=== PATIENT | male | born 1965 | race Caucasian/White ===

== ENCOUNTER 2022-08-23 23:04 | Emergency (ER) | payer MEDICAID, SELFPAY ==
[2022-08-23 23:19] VITALS: BP 178/108; PULSE 93; RESP 18; TEMP 36.6; O2SAT 98; BMI 26.6
[2022-08-24 00:03] VITALS: BP 174/101; PULSE 88; RESP 18; O2SAT 98
--- NOTE | 2022-08-24 00:21 | ED_ITS ---
HPI - Head Injury General Chief complaint: Head Injury/Pain Stated complaint: got hit by a softball Time Seen by Provider: 08/24/22 00:12 History of Present Illness HPI Narrative: hit in head with a softball approx 2030, did not lose consciousness but states for a few minutes after hit could not see out of R eye, vision returned and patient played in second softball game. denies pain. no vomiting. R side of forehead red abrasion present. 57-year-old man presenting to the emergency department with spouse with concern of head injury. Was playing outfield softball about 3 hours prior to evaluation when he lost a fly ball in the [place] and it struck his right forehead. For a few minutes he was not able to see out of his right eye but vision then returned normally and he even played without difficulty the next game even pitched. There was no loss of consciousness. No trauma actually to the eye directly. He has no neck or back pain. No nausea vomiting. Mentally clear reportedly. No discoordination. Related Data Home Medications Medication Instructions Recorded Confirmed No Known Home Medications 04/30/22 Allergies Allergy/AdvReac Type Severity Reaction Status Date / Time No Known Drug Allergies Allergy Verified 04/30/22 14:48 Review of Systems Status of ROS: Reports: 6 or more systems reviewed and unremarkable except as noted in History and below PFSH [facility] Family History Father Stroke Brother Heart problem Other Diabetes Social History Smoking Status: Never smoker Do you use any of these nicotine containing products: None How often do you have a drink containing alcohol: 2-3 times a week AUDIT-C Alcohol total score: 3 Non-prescribed substance use: denies use Exam Narrative: Exam Narrative: Pleasant. NAD. Breathing easily. Neck is supple nontender. Back nontender. Moving all extremities without difficulty. Normal [id number]. Pupils are brisk and equal. Extraocular movements are full and nonpainful. There is no nystagmus. I do not see any hyphema or evidence of trauma to the eye itself. There is a maximal 2 cm abrasion oval consistent with ball impact at the right upper outer orbital rim/brow. Is not particularly tender to palpation in this area though it is swollen. I do not feel any crepitus or other irregularity. Negative Romberg's. Normal toe heel/tandem walk. Speaking fluidly. Const: Vital Signs, click to edit/add: Vital Signs - 24 hr 08/23/22 23:19 08/24/22 00:03 Temperature 98 F Pulse Rate [Pulse Oximeter] 93 88 Respiratory Rate 18 18 Blood Pressure [Ri ght Upper Arm] 178/108 H 174/101 H Pulse Oximetry 98 98 Oxygen Delivery Me thod Room Air Room Air Documenting provider has reviewed patient's vital signs: yes Course Vital Signs Vital signs: Initial Vital Signs Temperature 98 F 08/23/22 23:19 Temperature Source Temporal Artery Scan 08/23/22 23:19 Pulse Rate 93 08/23/22 23:19 Respiratory Rate 18 08/23/22 23:19 Blood Pressure 178/108 H 08/23/22 23:19 Blood Pressure Mean 131 H 08/23/22 23:19 Blood Pressure Position Sitting 08/23/22 23:19 Pulse Oximetry 98 08/23/22 23:19 Oxygen Delivery Method Room Air 08/23/22 23:19 Vital Signs Temperature 98 F 08/23/22 23:19 Pulse Rate 93 08/23/22 23:19 Respiratory Rate 18 08/23/22 23:19 Blood Pressure 178/108 H 08/23/22 23:19 Pulse Oximetry 98 08/23/22 23:19 Oxygen Delivery Method Room Air 08/23/22 23:19 Temperature 98 F 08/23/22 23:19 Pulse Rate 88 08/24/22 00:03 Respiratory Rate 18 08/24/22 00:03 Blood Pressure 174/101 H 08/24/22 00:03 Pulse Oximetry 98 08/24/22 00:03 Oxygen Delivery Method Room Air 08/24/22 00:03 MDM - Head Injury MDM Narrative Medical decision making narrative: I think this is primarily a contusion. Presumably there was not insignificant impact, this was not a line drive type impact, but I do not believe there is a skull fracture here. I am not seeing evidence of concussion either. I think this just was an event where was stunned. Further has no notable headache. I would follow-up for formal eye exam though I do not believe anything further needs to be done today. Discharge Plan Discharge Clinical Impression: Closed head injury Patient Disposition: Home w/ Parent or Adult Condition: Improved Additional Instructions: I would ice this area 2-3 times daily over the next few days. Signs and symptoms of a concussion can be headache and nausea on exertion which would also be an indication to back off that level of activity and reassess in 1 week.? Other signs might be a smoldering headache or nausea for an extended period of time, mood lability, sleep disturbances, difficulty with concentration, persistent light sensitivity. If these symptoms involving last for a week to 10 days I would be seen for repeat evaluation and further recommendations. Return for severe headache, repeated vomiting, new and focal weakness, repeat visual changes, discoordination, unusual somnolence. Prescriptions: No Action No Known Home Medications Follow Up/Referrals: John Varela MD [Staff Physician] - Stand Alone Forms: [employer] Info Instructions
== END 2022-08-24 00:34 | disposition home or self-care (01) ==
LOC: ED 08-24 00:25
PROVIDERS: Emergency Provider Family Medicine
DX: S00.11XA Contusion of right eyelid and periocular area, initial encounter (principal); W21.03XA Struck by baseball, initial encounter
CPT/HCPCS: 99283

== ENCOUNTER 2023-07-22 08:59 | Outpatient (CLI) | payer MEDICAID, SELFPAY | END 2023-07-22 09:00 | disposition home or self-care (01) | LOC: NFLDREF 07-23 06:53 | PROVIDERS: Visit Provider Physician Assistant Medical | DX: Z00.00 Encounter for general adult medical examination without abnormal findings (principal); I10 Essential (primary) hypertension; E78.5 Hyperlipidemia, unspecified; Z12.5 Encounter for screening for malignant neoplasm of prostate; Z01.818 Encounter for other preprocedural examination | CPT/HCPCS: 80053; 80061; 84443; G0103 ==

== ENCOUNTER 2023-08-02 13:29 | Outpatient (CLI) | payer MEDICAID, SELFPAY ==
--- OUTSIDE RECORDS SUMMARY | 2023-08-10 09:09 | XMS_ITS | Clinical Summary ---
Author Name Unknown Organization [facility] Address [place], [place] [address] Care Team Providers Care Fish Technologist Name Role Phone Pcp, No Primary Care Provider Unavailabl e Allergies No known active allergies Medications Medication Sig Dispensed Refills Start Date End Date Status cyclobenzaprine (FLEXERIL) 10 mg tabletIndications: Back pain,Rotator cuff (capsule) sprain and strain Take 1 tablet by mouth. At bedtime for muscle contracture 30 tablet 0 04/27/2011 Active acetaminophen (TYLENOL EXTRA STRGTH) 500 mg tabletIndications: Back pain,Rotator cuff (capsule) sprain and strain Take 2 tablets by mouth every 6 hours if needed. Max acetaminophen dose: 4000mg in 24 hrs. 90 tablet 0 04/27/2011 Active pantoprazole (PROTONIX) 40 mg tabletIndications: Hiatal hernia,GERD (gastroesophageal reflux disease) Take 1 tablet by mouth once daily. 30 tablet 5 06/09/2011 Active aspirin 81 mg tablet Take 1 tablet by mouth once daily with a meal. 0 01/05/2013 Active Active Problems Problem Noted Date Diagnosed Date Hiatal hernia 06/09/2011 Elevated blood pressure read ing without diagnosis of hypertension 05/22/2011 GERD (gastroesophageal reflux disease) 2 Overview: EGD 04/2011 normal esophagus, Reactive gastropathy Rotator cuff (capsule) sprain and strain 012 Back pain 04/27/2011 Resolved Problems Problem Noted Date Diagnosed Date Resolved Date Abdominal pain, epigastric 04/27/2011 0 06/09/2011 Allergic rhinitis, cause unspecified 03/26/2010 03/26/2010 Family History Medical History Relation Name Comments Stroke Father Good Health Mother Relation Name Status Comments Father Mother Social History Tobacco Use Types Packs/Day Years Used Date Smoking Tobacco: Never Smokeless Tobacco: Never Tobacco Cessation:Counseling Given: No Alcohol Use Standard Drinks/Week Comments Yes 0 (1 standard drink = 0.6 oz pur e alcohol) socially Sex and Gender Information Value Date Recorded Sex Assigned at Not on file Gender Identity Not on file Sexual Orientation Not on file Obstetrics History Last Filed Vital Signs Vital Sign Reading Time Taken Comments Blood Pressure 167/102 03/15/2021 4:31 PM CONTROL PANEL OPERATOR Pulse 101 03/15/2021 4:31 PM CONTROL PANEL OPERATOR Temperature 37.1 ??C (98.7 ??F) 03/15/2021 4:31 PM CS T Respiratory Rate 18 03/15/2021 4:31 PM CONTROL PANEL OPERATOR Oxygen Saturation 96% 03/15/2021 4:31 PM CONTROL PANEL OPERATOR Inhaled Oxygen Concentration - - Weight 83.9 kg (185 lb) 03/15/2021 4:31 PM CONTROL PANEL OPERATOR Height 175.3 cm (5' 9) 03/15/2021 4:31 PM CONTROL PANEL OPERATOR Body Mass Index 27.32 03/15/2021 4:31 PM CONTROL PANEL OPERATOR Plan of Treatment Health Maintenance Due Date Last Done Comments Tdap 01/24/1975 Depression screening for age 12+ 1976 HIV for age 15-65 01/24/1979 Hepatitis C screening for ag e 18-79 01/24/1982 Tetanus booster 1984 Colonoscopy through age 75 01/24/2009 Lipids for age 45-75 01/24/2009 Zoster (shingles) series for age 50+ (1 of 2) 01/24/2014 BMI (ht and wt on same day) for age 18+ 03/15/2022 03/15/2021 COVID-19 vaccine series ( season) 2022 10/12/2020, 09/21/2020 Influenza for age 50-64 12/26/2023 Pneumococcal series for age 6-64 Aged Out No longer eligible b ased on patient's age to complete this topic Care Teams Fish Technologist Relationship Specialty Start Date End Date Pcp, No . PCP - General 06/16/16
== END 2023-08-02 13:30 | disposition home or self-care (01) ==
LOC: NFLDREF 08-10 09:06
PROVIDERS: PCP Physician Assistant Medical; Visit Provider Physician Assistant Medical
DX: I10 Essential (primary) hypertension (principal)
CPT/HCPCS: 87086

== ENCOUNTER 2023-08-09 07:00 | Day surgery (SDC) | payer MEDICAID, SELFPAY ==
[2023-08-09] VITALS (12 sets, daily range): BP systolic 123–149; BP diastolic 75–91; PULSE 64–97; RESP 14–18; TEMP 36.2–36.4; O2SAT 93–97; BMI 26.7
[2023-08-09] MEDS: LACTATED RINGERS 1000 ML 1,000 ML 100 ML IV ×2 (07:15→09:59)
--- NOTE | 2023-08-09 08:20 | SUR.PREOP ---
TIME?OUT:?0900 PT/RN/MDA?VERIFICATION?OF?SURGICAL?SITE,?PROCEDURE,?AND?CONSENT OBTAINED?PRIOR?TO?INVASIVE?PROCEDURE.
[2023-08-09] MEDS: MIDAZOLAM HCL 1 MG/ML inj IVP (09:04)
[2023-08-09] MEDS: fentaNYL 100 MCG/2 ML inj IVP (09:04)
--- NOTE | 2023-08-09 09:30 | P.NB_ITS ---
Nerve Block Nerve Block Time Seen by Provider: 09:00 Date Seen: 08/09/23 Type of block requested by surgeon for post-operative analgesia: supraclavicular Side: right Time out performed: Yes Verification of patient name: Yes Verification of date of : Yes Site marking: site marked Name of person performing procedure: Lance Continuous monitoring Was continuous monitoring of O2 sat, B/P, permastone applicator, recorded every 15 minutes?: Yes Procedure Checklist: sterile prep, needles and gloves Ultrasound guided. Images saved: Yes Medications given in 5ml increments after negative aspiration: Ropivicaine %: 0.5 mL: 20 Needle gauge: 22 Decadron (mg): 10 Precedex (mcg): 25 Patient tolerated procedure well: Yes Block Charges Block Charge (with Pro Fee): Brachial Plexus Use of Ultrasound Machine for Block: Yes- US Guidance/pain block
[2023-08-09] MEDS: CEFAZOLIN 2 GM in 0.9 % SODIUM CHLORIDE Mini-bag 100 ML IVPB (09:55)
[2023-08-09] MEDS: EPINEPHrine 1 MG in SODIUM CHLORIDE IRRIG SOLUTION 3,000 ML 9003 MG IRRIGATION ×4 (10:15→11:15)
--- NOTE | 2023-08-09 11:22 | W.PM.H&PU ---
History & Physical Update History & Physical Update H&P Reviewed and patient assessed: No changes noted
[2023-08-09] MEDS: LACTATED RINGERS 1000 ML 1,000 ML 35 ML IV (11:23)
--- NOTE | 2023-08-09 11:23 | PM.ORPRC ---
Procedure Note Date of procedure: 08/09/23 Procedure: PREOPERATIVE DIAGNOSES: 1. Right shoulder rotator cuff tear. 2. Right shoulder AC degenerative joint disease, primary, moderate-severe 3. Right shoulder anterior and superior labral tearing 4. Right shoulder subacromial impingement syndrome. POSTOPERATIVE DIAGNOSES: 1. Right shoulder rotator cuff tear. 2. Right shoulder AC degenerative joint disease, primary, moderate-severe 3. Right shoulder anterior and superior labral tearing 4. Right shoulder subacromial impingement syndrome. NAME OF OPERATION: 1. Right shoulder arthroscopic rotator cuff repair - full-thickness supraspinatus 2. Right shoulder arthroscopic distal clavicle excision 3. Right shoulder arthroscopic limited glenohumeral debridement 4. Right shoulder arthroscopic bursectomy, subacromial decompression/partial acromioplasty. SURGEON: John Varela MD FISHING FLOATS ASSEMBLER: Guillermo BROWN. Of note, a skilled group fitness assistant department head was critical for this case to aide in patient positioning, suture manipulation, arm positioning, instrument positioning, and closure. ANESTHESIA: General plus preoperative supraclavicular block. EBL: 25 mL IMPLANTS: Arthrex 1.6 mm FiberTak RC (x1); Arthrex 5.5 mm BioComposite SwiveLock suture anchor (x1) COMPLICATIONS: None evident INDICATIONS: The patient is a pleasant, 58-year-old male who has experienced right shoulder pain that has been increasing in recent time. Physical exam and imaging were consistent with a rotator cuff tear. Given their findings, as well as the weakness and pain, and inadequate response to nonoperative management, recommendation was made for surgery. FINDINGS: Exam under anesthesia revealed stable shoulder with excellent range of motion. The diagnostic arthroscopy revealed healthy chondral surfaces of the glenohumeral joint. The Subscapularis tendon was intact and with a healthy attachment. The long head of the biceps tendon was minimally torn in a partial-thickness manner on the deep surface through the bicipital groove region. The superior rotator cuff tendon was found to be torn full thickness at the anterior margin measuring approximately 12 mm in greatest dimension with minimal retraction. The labrum was degeneratively frayed in the anterior and superior aspects. No loose bodies were identified within the pouch or subscapularis recess. PROCEDURE: Following a thorough discussion of risks, benefits, and alternatives, consent was obtained and the right shoulder was marked. The patient was brought to the operating room and placed supine on the operating table. Induction of anesthesia was completed after preoperative supraclavicular block was administered in preop holding. Appropriate time out was performed identifying proper patient, site, and procedure. 2 g IV Ancef was administered within 1 hour of incision preoperatively. The right upper extremity was prepped and draped in the appropriate sterile fashion using ChloraPrep prep. This was after the patient was positioned in the beach chair with their head in neutral alignment and all bony prominences well padded. The shoulder was insufflated with 20mL of normal saline via an 18g spinal needle from a posterior approach. An 11 blade skin incision allowed a blunt trochar to be inserted and diagnostic arthroscopy to be performed with the findings as noted above. An anterior portal was established with an outside in technique. This allowed the probe to be inserted and confirm the diagnostic arthroscopic findings. The shaver was then inserted and allowed debridement of the anterior and superior labrum. Following this, the upper border subscapularis was probed and found to be .stable Thereafter, the subacromial space was entered. Here, a complete bursectomy and partial acromioplasty/subacromial decompression was performed with a combination of radiofrequency ablator, the shaver, and a 5.5 mm bur. Additionally, distal clavicle excision was performed with the bur. 8 mm of distal clavicle was resected based on the with of our bur. Further inspection of the supraspinatus and infraspinatus rotator cuff was performed. This identified the tear as noted above. The margins of the tear were debrided, and the greater tuberosity was debrided with a combination of the apollo cautery, shaver, and bur on reverse setting. After gentle decortication, single medial and single lateral anchor were then applied. The medial was a FiberTak RC. The FiberTape sutures were passed independent fashion along with a single static eyelet suture. These 3 tails were brought to a single lateral anchor with excellent reapproximation of the rotator cuff opposed against the greater tuberosity. There was a small dog ear anteriorly that was secured with the eyelet suture from the lateral anchor. The rotator cuff showed excellent reapproximation of the greater tuberosity with good security upon probing. Prior to anchor skidder driver removal, the eyelet sutures were tugged on for each anchor and found that the anchor had excellent stability within the bone. The shoulder was placed through range of motion and found to be stable. The rotator cuff was re-probed and found to be stable. Instruments were removed. Excess fluid was drained, closure performed with 4-0 Monocryl and Steri-Strips. Dressings were applied. Sling was applied. The patient was awoken from anesthesia and transferred to the PACU in stable condition. A skilled group fitness assistant department head was critical for this case to aid in patient positioning, limb positioning, skill to manipulate arthroscopic instruments and camera, suture management, patient safety, and closure. PLAN: 1. Elbow, forearm, wrist and digit range of motion as tolerated. 2. Encouraged ice. 3. Oxycodone for pain as needed. 4. Sling at all times except for ROM and showering. 5. Follow up with PA visit in 1-2 weeks for wound check. Initiate physical therapy following that visit for passive range of motion. Initiate active assisted range of motion at 4 weeks. May do pendulums now.
--- NOTE | 2023-08-09 11:27 | W.ANESCHARGE ---
Anesthesia Charges Start Date/Time Anesthesia Start Date: 08/09/23 Anesthesia Start Time: 09:40 Stop Date/Time Anesthesia Stop Date: 08/09/23 Anesthesia Stop Time: 11:28
--- NOTE | 2023-08-09 11:48 | W.ANESCHARGE ---
Anesthesia Charges Start Date/Time Anesthesia Start Date: 08/09/23 Anesthesia Start Time: 09:40 Stop Date/Time Anesthesia Stop Date: 08/09/23 Anesthesia Stop Time: 11:28
== END 2023-08-09 13:39 | disposition home or self-care (01) ==
PROVIDERS: PCP Physician Assistant Medical; Visit Provider Orthopaedic Surgery Sports Medicine
PROC: (CPT 29805; principal; 2023-08-09 09:15)
DX: M75.121 Complete rotator cuff tear or rupture of right shoulder, not specified as traumatic (principal); M19.011 Primary osteoarthritis, right shoulder; M75.41 Impingement syndrome of right shoulder; S43.431A Superior glenoid labrum lesion of right shoulder, initial encounter; G89.18 Other acute postprocedural pain
CPT/HCPCS: 29827; 29826; 29824; 29822; 01630; 64415; 76942; C1713; J0171; J0330; J0690; J1100; J2250; J2405; J2704; J2795; J3010; J7120; L3670

== ENCOUNTER 2023-11-10 08:45 | Outpatient (RCR) | payer MEDICAID, SELFPAY ==
--- NOTE | 2023-08-23 12:54 | PT.OPE ---
[facility] PT [facility] Out[facility] Eval Start: 08/23/23 11:39 Freq: Status: Active Protocol: Document 08/23/23 11:40 LEANNE (Rec: 08/23/23 11:41 LEANNE [id number]) E-signed By Zafar Longoria DPT, MS Physical Therapy Outpatient Evaluation Insurance Information Recert Due Date 11/21/23 Insurance Name Medicaid Medical Diagnosis Status post R rotator cuff repair, SAD, DCE, and glenohumeral debridement Treating Diagnosis R shoulder pain, decreased R shoulder PROM and AROM in all directions, R UE weakness. Subjective Subjective Pt is an otherwise healthy R- hand dominant 58 y.o. male who presents to therapy post-op R RCR (supraspinatus) with 2 anchors, SAD, GH debridement and DCE on 08/09/23. Denies an injury with elevated R shoulder pain over the past >5 years. Well managed pain levels with R upper back/neck pain being his chief complaint . He has been careful to avoid AROM, continued sling usage and not performing activities into pain. Also using a splint for his R thumb due to tendon injuries. Sleep improving but wakes up with high levels of stiffness. Pendulums have been helpful. 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 Pt is currently unemployed. PMH includes R shoulder OA. AGGR factors: All activities with R UE, sleeping. ALLEV factors: rest, ice, Advil, pendulums. 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 R shoulder PROM: flex 105 deg, ABD 65 deg, ER 20 deg, IR 45 deg. Excellent relaxation during passive flex ROM today with no elevation in pain levels during or following. Will begin AAROM after 1 month post-op, per MD instructions. He will benefit from continued skilled therapy to address these limitations. Primary Functional Limitations All activities with R UE, sleeping Plan of Care Rehabilitation Potential Excellent Physical Therapy Goals Short-term therapy goals to be completed in 4 weeks: 1.Pt will display improved R shoulder flex and ABD PROM to >165 deg to progress to AROM phase of rehab. 2.Pt will report improved quality of sleep waking <2x per night due to R shoulder pain >50% of nights for >3 consecutive nights. Long-term goals to be completed in 12 weeks: 1.Pt will be independent and compliant with HEP 2.Pt will display >165 deg R shoulder flex and ABD AROM to reach into overhead cabinets and perform all ADLs. 3.Pt will display improved R shoulder flex, ABD, ER and IR strength of 5/5 to lift objects into overhead cabinets and perform work activities. 4. Pt will report >75% improvement in quick DASH questionnaire to significantly improve trista to work and daily activities. Coordination/Communication With Referral Source Treatment Plan/Direct Interventions Joint Mobilization,Manual Therapy,Therapeutic Exercises Frequency/Duration 2x per week for at least 12-16 visits, decreasing visit frequency as able. Patient Will Be Discharged From Therapy Completion of LTG(s),Skills Plateau,Independent w/HEP, Independently Progressing Evaluation Billing Untimed Code Treatment Minutes 24 Complexity Moderate Certification Information Initial Certification Date 08/23/23 Ending Certification Date 11/21/23 Provider Signature Shows Agreement With POC & Medical Necessity Physician Signature & Date Requested Please Sign/Date Here Physician Comment/Change : Physician NPI Number #
== END 2024-02-24 11:17 | disposition home or self-care (01) ==
PROVIDERS: PCP Physician Assistant Medical; Visit Provider Orthopaedic Surgery Sports Medicine
DX: Z98.890 Other specified postprocedural states (principal); M25.511 Pain in right shoulder; Z74.09 Other reduced mobility; R53.1 Weakness; Z51.89 Encounter for other specified aftercare
CPT/HCPCS: 97110; 97162

== ENCOUNTER 2023-11-26 08:55 | Outpatient (CLI) | payer MEDICAID, SELFPAY ==
--- OUTSIDE RECORDS SUMMARY | 2023-11-28 05:59 | XMS_ITS | Clinical Summary ---
Author Organization [facility] Address [place], [place] [address] Care Team Providers Care Flower Grower Name Role Phone Pcp, No Primary Care [...] Comments Blood Pressure 167/102 03/15/2021 4:31 PM FILM AND VIDEO GRAPHICS DESIGNER Pulse 101 03/15/2021 4:31 PM FILM AND VIDEO GRAPHICS DESIGNER Temperature 37.1 ??C (98.7 ??F) 03/15/2021 4:31 PM CS T Respiratory Rate 18 03/15/2021 4:31 PM FILM AND VIDEO GRAPHICS DESIGNER Oxygen Saturation 96% 03/15/2021 4:31 PM FILM AND VIDEO GRAPHICS DESIGNER Inhaled Oxygen Concentration - - Weight 83.9 kg (185 lb) 03/15/2021 4:31 PM FILM AND VIDEO GRAPHICS DESIGNER Height 175.3 cm (5' 9) 03/15/2021 4:31 PM FILM AND VIDEO GRAPHICS DESIGNER Body Mass Index 27.32 03/15/2021 4:31 PM FILM AND VIDEO GRAPHICS DESIGNER Plan of Treatment Health Maintenance Due Date [...] age to complete this topic Care Teams Flower Grower Relationship Specialty Start Date End Date Pcp, No . PCP - General 06/16/16
== END 2023-11-26 08:56 | disposition home or self-care (01) ==
PROVIDERS: PCP Physician Assistant Medical; Referring Provider Physician Assistant Medical; Visit Provider Physician Assistant Medical
DX: E78.5 Hyperlipidemia, unspecified (principal); R79.89 Other specified abnormal findings of blood chemistry; I10 Essential (primary) hypertension
CPT/HCPCS: 80061; 80076

== ENCOUNTER 2025-04-19 14:11 | Emergency (ER) | payer MEDICAID, SELFPAY ==
[2025-04-19 14:13] VITALS: BP 166/47; PULSE 90; RESP 18; TEMP 36.6; O2SAT 96; BMI 26.6
--- OUTSIDE RECORDS SUMMARY | 2025-04-19 14:14 | XMS_ITS | Clinical Summary ---
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 At bedtime for muscle contracture 30 tablet ctive acetaminophen (TYLENOL EXTRA STRGTH) 500 mg tablet Indications:Back pain,Rotator cuff (capsule) sprain and strainTake 2 tablets by mouth every 6 hours if needed. Max acetaminophen dose: 4000mg in 24 hrs. 90 tablet ctive pantoprazole (PROTONIX) 40 mg tablet Indications:Hiatal hernia,GERD (gastroesophageal reflux disease)Take 1 tablet by mouth once daily. 30 tablet ctive aspirin 81 mg tablet Take 1 tablet by mouth once daily with a meal.ctive Active Problems ProblemNoted DateDiagnosed DateHiatal huxbod4006/09/2011Elevated blood pressure reading without diagnosis of emhnacdlrrel12/27/2012GERD (gastroesophageal reflux disease)05/13/2011 Overview (05/28/2011): EGD 04/2011 normal esophagus, Reactive gastropathy Rotator cuff (capsule) sprain and xipeka7404/27/2011ack pain04/27/2011 Resolved Problems ProblemNoted DateDiagnosed DateResolved DateAbdominal pain, utumuuufgk22/02/2012 06/09/2011llergic rhinitis, cause qdxvnguglkd63 Family History Medical HistoryRelationNameCommentsStrokeFatherGood HealthMotherRelationName StatusCommentsFatherMother Social History Tobacco UseTypesPacks/DayYears UsedDateSmoking Tobacco: NeverSmokeless Tobacco: Never Tobacco Cessation:Counseling Given: No Alcohol UseStandard Drinks/WeekCommentsYes0 (1 standard drink = 0.6 oz pure alcohol)sociallySex and Gender InformationValueDate RecordedSex Assigned at BirthNot on fileLegal EupWmxi7505/09/2012 6:52 AM CSTGender IdentityNot on file Sexual OrientationNot on file Last Filed Vital Signs Vital SignReadingTime TakenCommentsBlood Fhbjkwgv715/3561203/15/2021 4:31 PM COMMUNITY SERVICE SPECIALIST Qcqky16835/20/2021 4:31 PM THPDlziyoprixq57.1 ??C (98.7 ??F)03/15/2021 4:31 PM CSTRespiratory Movr863905/15/2020 4:31 PM CSTOxygen Wikrdihvkk28%03/15/2021 4:31 PM CSTInhaled Oxygen Concentration--Rjgipw86.9 kg (185 lb)03/15/2021 4:31 PM COMMUNITY SERVICE SPECIALIST Orsvpn867.3 cm (5' 9)03/15/2021 4:31 PM CSTBody Mass Index27.32105/15/2020 4:31 PM COMMUNITY SERVICE SPECIALIST Plan of Treatment Health MaintenanceDue DateLast DoneCommentsTetanus alnkbln6501/24/1975Depression screening for age 12+1976HIV for age 15-6501/24/1979Hepatitis C screening for age 18-7901/24/1982Colonoscopy through age 7501/24/2009Lipids for age 45-75 01/24/2009Pneumococcal series for age 50+ (1 of 1 - PCV)01/24/2014Zoster (shingles) series for age 50+ (1 of 2)01/24/2014MI (ht and wt on same day) for age 18+/OVID-19 vaccine series (2024- season) , 05/29/2021Influenza Vaccine (#1)2024RSV vaccine for adults or (1 - 1-dose 75+ series)01/24/2039Hepatitis B series for 19+ Aged OutNo longer eligible based on patient's age to complete this topic Insurance * Guarantor: David Fisher TypeRelation to PatientDate of PhoneBilling AddressPersonal/LekhchJmxf[id number] [place] [address] * Guarantor: David Fisher TypeRelation to PatientDate of PhoneBilling AddressWorkers [id number] [place] [address] [place] [address] * Guarantor: David Fisher TypeRelation to PatientDate of PhoneBilling AddressWorkers [id number] [place] [address] * Guarantor: David Fishercopamela TypeRelation to PatientDate of PhoneBilling AddressWorkers [id number] [place] [place] [id number] Care Teams Team MemberRelationshipSpecialtyStart DateEnd Date Pcp, No PCP - General06/16/16
--- OUTSIDE RECORDS SUMMARY | 2025-04-19 14:14 | XMS_ITS | Data Portability ---
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 Plan of Treatment Reminders Order DateSubmit DateProviderLast Modified ByOrganization DetailsLast Modified TimeDetailsAppointmentsNone recorded.Laburinalysis, zwsdivwd33/ ltuzwd31[facility], [address] [place] [address] [address], [place], [address], 09/ 11:42:26ReferralNone recorded.ProceduresNone recorded. SurgeriesNone recorded.ImagingCT, dlbedwg17/[facility], [address] [place] [address] [address], [place], [address], Ph [phone]/ 13:11:19Medication Orderstadalafil 5 mg kqashj78sbartels12[facility] [address] [facility] [employer], [address] [place], [address], 11/22/2024 16:32:26diazepam 10 mg axynpv90THENACVS [address] [facility], [address] , [place], [address], 12/23/2023 15:31:45 Patient TargetsNo targets recorded. Patient InstructionsNo instructions recorded. Reason for Referral None Reported. Results Created Date Observation Date Name Description Value Unit Range Abnormal Flag Note LastModifiedBy Organization Detail LastModifiedTime 11/11/2023 11/11/2023 urinalysis, dipstick BLOOD Negativ e Not Available[facility] [address], [place], [address], 50/ 11:38:44[address]/10//urinalysis, dipstickBILIRUBINNegativeNot Available [facility] [address], [place], [address], 63 11:38:44011/10//urinalysis, dipstickUROBILINOGEN0.2 mg/dL (Norm)Not AvailableUa_[facility] [address], [place], [address], 59 11:38:44011/10//urinalysis, dipstickKETONESNegativeNot Available [facility] [address], [place], [address], 71 11:38:44011/10//urinalysis, dipstickPROTEINNegativeNot Available [facility] [address], [place], [address], 84 11:38:4407//urinalysis, dipstickNITRITESNegativeNot Available [facility] [address], [place], [address], 83 11:38:44011/10//urinalysis, dipstickGLUCOSENegativeNot Available [facility] [address], [place], [address], 45 11:38:4407//urinalysis, dipstickp.H.6.0Not AvailableUa_[facility] [address], [place], [address], 72/ 11:38:4407///urinalysis, dipstickS.G. (Specific [place])1.020Not AvailableUa_[facility] [address], [place], [address], 61/ 11:38:4407///urinalysis, dipstickLEUKOCYTESNegativeNot Available [facility] [address], [place], [address], 87 11:38:4407//4CT, urogramEXAM: CT, UROGRAM LOCATION: [facility] DATE: 11/18/2023 INDICATION: Other microscopic hematuria COMPARISON: None. TECHNIQUE: CT scan of the abdomen and pelvis using urogram technique withpre contrast, post contrast, and delayed images. Multiplanar reformats were obtained. Dose reduction techniques were used. CONTRAST: None. FINDINGS: LOWER CHEST: 5 mm pulmonary nodule is present within the right lower lobe (series 8, image 23). HEPATOBILIARY: No significant mass or bile duct dilatation. No calcified gallstones. PANCREAS: No significant mass, duct dilatation, or inflammatory change. SPLEEN: Normal size. ADRENAL GLANDS: Mild thickening is seen along the adrenal glands suggestive of hyperplasia. RIGHT KIDNEY/URETER: 2 mm nonobstructive calculus is seen along the inferior pole. No hydronephrosis is present. LEFT KIDNEY/URETER: 3 mm nonobstructive calculus is seen along the inferior pole. No hydronephrosis is present. BLADDER: Diffuse wall thickening is seen within the urinarybladder. BOWEL: Diverticulosis of the colon. No acute inflammatory change. No obstruction. LYMPH NODES: No lymphadenopathy. Subcentimeter upper abdominal lymph nodes are nonspecific and may be reactive measuring up to 7 mm along the portocaval space (series 8, image 51). VASCULATURE: Scattered vascular calcifications are seen in the abdominal aorta. PELVIC ORGANS: Prostate gland is enlarged measuring 5.9 cm in transverse diameter. MUSCULOSKELETAL: Multilevel degenerative changes are seen in thespine. 4 mm sclerotic focus is seen along the right lateral eighth rib and a few other punctate sclerotic foci are seen in the pelvis, favored to reflect bone islands. IMPRESSION: 1. No hydronephrosis or obstructive nephrolithiasis. Nonobstructive calculi are seen along both kidneys measuring up to3 mm along the left kidney and 2 mm along the right kidney. 2. 5 mm pulmonary nodule is seen in theright lower lobe. Suggest follow-up per guidelines below. 3. Diffuse wall thickening is seen withinthe urinary bladder which likely relates to outlet obstruction given prostatomegaly. Suggest correlation with urinalysis for underlying cystitis. REFERENCE: Guidelines for Management of Incidental Pulmonary Nodules Detected on CT Images: From the Fleischner Society 2017. Guidelines apply to incidental nodules in patients who are 35 years or older. Guidelines do not apply to lung cancer screening,patients with immunosuppression, or patients with known primary cancer. SINGLE NODULE Nodule size <6 mm Low-risk patients: No follow-up needed. High-risk patients: Optional follow-up at 12 months.Nodule size 6-8 mm Low-risk patients: Follow-up CT at 6-12 months, then consider CT at 18-24 months. High-risk patients: Follow-up CT at 6-12 months, then at 18-24 months if no change. Nodule size >8 mm Either low or high-risk patients: Consider CT, PET/CT, or tissue sampling at 3 months. This report was electronically interpreted by: Yajaira Benitez MD on 11/18/2023 at 12:03acgzxy6 [facility] [place] [address] [address], [place], [address], 12/23/2023 22:12:31 Result Notes Documentation Provider Name and Address Organization Details Recorded Time Ct, Urogram : EXAM: CT, UROGRAM LOCATION: [facility] DATE: 11/18/2023 INDICATION: Other microscopic hematuria COMPARISON: None. TECHNIQUE: CT scan of the abdomen and pelvis using urogram technique with pre contrast, post contrast, and delayed images. Multiplanar reformats were obtained. Dose reduction techniques were used. CONTRAST: None. FINDINGS: LOWER CHEST: 5 mm pulmonary nodule is present within the right lower lobe (series 8, image 23). HEPATOBILIARY: No significant mass or bile duct dilatation. No calcified gallstones. PANCREAS: No significant mass, duct dilatation, or inflammatory change. SPLEEN: Normal size. ADRENAL GLANDS: Mild thickening is seen along the adrenal glands suggestive of hyperplasia. RIGHT KIDNEY/URETER: 2 mm nonobstructive calculus is seen along the inferior pole. No hydronephrosis is present. LEFT KIDNEY/URETER: 3 mm nonobstructive calculus is seen along the inferior pole. No hydronephrosis is present. BLADDER: Diffuse wall thickening is seen within the urinary bladder. BOWEL: Diverticulosis of the colon. No acute inflammatory change. No obstruction. LYMPH NODES: No lymphadenopathy. Subcentimeter upper abdominal lymph nodes are nonspecific and may be reactive measuring up to 7 mm along the portocaval space (series 8, image 51). VASCULATURE: Scattered vascular calcifications are seen in the abdominal aorta. PELVIC ORGANS: Prostate gland is enlarged measuring 5.9 cm in transverse diameter. MUSCULOSKELETAL: Multilevel degenerative changes are seen in the spine. 4 mm sclerotic focus is seen along the right lateral eighth rib and a few other punctate sclerotic foci are seen in the pelvis, favored to reflect bone islands. IMPRESSION: 1. No hydronephrosis or obstructive nephrolithiasis. Nonobstructive calculi are seen along both kidneys measuring up to 3 mm along the left kidney and 2 mm along the right kidney. 2. 5 mm pulmonary nodule is seen in the right lower lobe. Suggest follow-up per guidelines below. 3. Diffuse wall thickening is seen within the urinary bladder which likely relates to outlet obstruction given prostatomegaly. Suggest correlation with urinalysis for underlying cystitis. REFERENCE: Guidelines for Management of Incidental Pulmonary Nodules Detected on CT Images: From the Fleischner Society 2017. Guidelines apply to incidental nodules in patients who are 35 years or older. Guidelines do not apply to lung cancer screening, patients with immunosuppression, or patients with known primary cancer. SINGLE NODULE Nodule size <6 mm Low-risk patients: No follow-up needed. High-risk patients: Optional follow-up at 12 months. Nodule size 6-8 mm Low-risk patients: Follow-up CT at 6-12 months, then consider CT at 18-24 months. High-risk patients: Follow-up CT at 6-12 months, then at 18-24 months if no change. Nodule size >8 mm Either low or high-risk patients: Consider CT, PET/CT, or tissue sampling at 3 months. This report was electronically interpreted by: Yajaira Benitez MD on 11/18/2023 at 12:09 Thony Crystal MD [address] [place] [address],[address], [address], [facility] 12/23/2023 22:12:31 Procedures Surgical History Date Name Laterality Status Provider Name and Address Organization Details Recorded Time 12/23/2023 Cystoscopy- male completedThony Crystal MD [address] [place] [address],[address], [place], [address], [facility]12/23/2023 22:14:2604COMPLEX VISITcompletedThony Crystal MD [address] [place] [address],[address], [address], [facility]12/23/2023 22:14:3104complete repair of rotator cuffcompletedRebecca [facility]11/11/2023 11:48:07 Imaging Results None recorded. Procedure Notes None recorded. Medical Equipment None Reported. Allergies No known drug allergies Medications Name Sig Start Date Stop Date Status Note LastModified by Organization Details LastModified Time diazepam 10 mg tablet TAKE 1 TABLET BY O RAL ROUTE DIRECTED, FOR IN OFFICE PROCEDURE. 12/23/2023ompletedNot AvailableNot AvailableNot Availableoxycodone 5 mg tablet TAKE 1 TABLET BY MOUTH EVERY 4-8 HOURS NEEDED FOR PAIN11/11/2023ompletedNot AvailableNot AvailableNot Availablecalcium 100 mg capsuleTake by oral route. activeNot AvailableNot AvailableNot Availablerosuvastatin 10 mg tabletTAKE 1 TABLET BY MOUTH ONCE DAILY FOR FOR CHOLESTEROLactiveNot AvailableNot Available Not Availabletadalafil 5 mg tabletTAKE 1 TABLET BY MOUTH EVERY DAYactiveNot AvailableNot AvailableNot Availableamlodipine 5 mg-valsartan 160 mg tabletTAKE 1 TABLET BY MOUTH EVERY DAY FOR BLOOD PRESSUREactiveNot AvailableNot AvailableNot Available Vitals Date Recorded Body height Body mass index (BMI) Body weight Provider Name and Address Organization Details Last Updated DateTime 11/11/2023 175.26 cm 26.6 kg/m2 10018.63 g Cinda Molina [facility] 11/11/2023 11:45:03 Date Recorded Body height Body mass index (BMI) Body weight Provider Name and Address Organization Details Last Updated DateTime 12/23/2023 175.26 cm 26.6 kg/m2 74507.63 g Cinda Rocha [facility] 12/23/2023 15:31:31 Social History Question Answer Notes LastModified by Organization D etails LastModified Time Tobacco Smoking Status Never Smoker Cinda Molina manjinder [facility]11/11/2023 11:47:35What Is Your Level Of Caffeine Consumption?ModeraterstromquistInformation not /18/2024What Was The Date Of Your Most Recent Tobacco Screening?8910echfgntl00Joryjjyghfq not ururyjmbq38/29/2024Has Tobacco Cessation Counseling Been Provided?Kdhbjxyhgz36 Information not ipohnyemr10/29/2024 Sex: Unknown Functional Status Question Answer Note LastModified by Organization D etails LastModified Time Do you use any illicit or recreational drugs? No rstromquistInformation not /18/2024o you or have you ever used any other forms of tobacco or nicotine?Atlgifdiji88Ltvcpxuhtfc not available 12/23/2023What is your level of alcohol consumption?Occasionalrstromquist Information not ftdmabowh13/18/2024 Mental Status None recorded. Family History Relationship Description Onset Age of this Age Resolved Age Notes LastModified by Organization Details LastModified Time Father Hernia repair rstromquistNot gyoivdvvl52/18/2024 11:47:13BrotherHernia repairrstromquistNot dpjtieyuc31/18/2024 11:47:13 Medical History No medical history recorded. Immunizations Vaccine Type Date Status Note Provider Nam e and Address Organization Details Recorded Time COVID-19, mRNA, LNP-S, PF, 30 mcg/0.3 mL dose 09/22/19 21 completed Cinda dunbar [facility]11/11/2023 11:45:10COVID-19, mRNA, LNP-S, PF, 30 mcg/0.3 mL dose1completedRebLUNA Narayanan [facility] [place] Llmxvqx1411/11/2023 11:45:49Tusd57completedReLUNA Pelayo - [place] Xmcspsf5011/11/2023 11:45:10 Past Encounters Encounter ID Performer Location Encounter Start Date Encounter Closed Date Diagnosis/Indication Diagnosis SNOMED-CT Code Diagnosis ICD10 Code Diagnosis IMO Codes Diagnosis Note [id number] Thony Crystal MD [facility] [address] [place] [address] 11/11/2023 11:09:45 11/13/2023 16:12:52 Microscopic hematuria 590537801 R31.29 - We reviewed the differential diagnosis for microscopic hematuria including benign and malignant etiologies.- We discussed the standard of care work up including evaluation of the upper urinary tract and lower urinary tract with cystoscopy and cross-sectional imaging to evaluate the kidneys and ureters.- Patietn requests cystoscopy with aid of diazepam- CT Urogram orderedAnxiety 24508133X13.9 - Diazepam for cystoscopySlowing of urinary tnervw00703481J09.12 - Obtain UroCuff in 6 months - AUA SS: 15 (QOL 4) - We discussed the natural history of voiding dysfunction including primary bladder outlet obstruction vs detrusor instability vs combination. We discussed the role of medications in the management of BPH including alpha blockers, 5- ROLO, and anticholinergics/beta agonists including their mechanismsof action. - Trial daily tadalafilUrgent desire to pfokmbj53611621D85.15 - as aboveUrine stream ztfgxhdytgs514053775E47.12 - as aboveSensation as if urinary bladder still mjue517815903M00.14 - as xstvsWmfokeka339780160W13.1 - as abovePrimary erectile zethwddrayp587621335G91.9 - IIEF: 17- Trial rrvlnxnju434798Gtsoot [place], [facility] [address] [place] [address] 12/23/2023 15:21:53012/30/2023 10:48:54Microscopic ttmnvshds443028703K10.29 - We reviewed the differential diagnosis for microscopic hematuria including benign and malignant etiologies.- We discussed the standard of care work up including evaluation of the upper urinary tract and lower urinary tract with cystoscopy and cross-sectional imaging to evaluate the kidneys and ureters.- Cystoscopy benign- CT Urogram reviewedSlowing of urinary xyhhue30672946B53.12 - Obtain UroCuff in 6 months - AUA SS: 15 (QOL 4) --> 4 (3) - We discussed the natural history of voiding dysfunction including primary bladder outlet obstruction vs detrusor instability vs combination. We discussed the role of medications in the management of BPH including alpha blockers, 5- ROLO, and anticholinergics/beta agonists including their mechanismsof action. - Trial daily tadalafil has been very successfulUrgent desire to rrlcxxq25286782 R39.15 - as aboveUrine stream sdvlhjqvvcw627504696J38.12 - as aboveSensation as if urinary bladder still uspb259986902A59.14 - as sodusMeyxmpje556237635R05.1 - as abovePrimary erectile klrabkdotbk130397134M16.9 - IIEF: 17- Trial tadalafilKidney chogq72409545S44.0 - Small and non-obstructing, recommend monitoring Health Concerns Section Related Observation LastModified by Organization Detai ls LastModified Time None Recorded Concern Status LastModified by Organization Details LastModified Time None Recorded Advance Directives Directive None Recorded Payers Insurance Date Sequence Insurance Name Policy Number Policy Ribeiro Covered Member ID Ribeiro Member ID Guarantor Name 11/11/2023 1 [employer] [place] (MEDICAID HMO) David [id number] D [id number]/06/20241[place] David [id number] D Christensen Notes Date Note Type Note Provider Name and Address Orga richard Details Recorded Time 11/11/2023 text/html This is a 58 year old male who is referred by his primary care provider, Linda Constantino PA-C, for the evaluation and management of microscopic hematuria. Patient reports worsening urinary habits including: weak stream, urinary urgency, urinary frequency, intermittency, and nocturia. The patient has never been a smoker.They deny any worrisome occupational exposures that would increase their risk for urothelial cell carcinoma. Also reports moderate ED. He denies any history of urologic malignancies.No history of nephrolithiasis.No history of prior pelvic radiation.Thony Crystal MD [address], [place], [address], [facility] Nflhutr6411/11/2023 13:39:0812/23/2023text/html This is a 58 year old male who is referred by his primary care provider, Linda Constantino PA-C, for the evaluation and management of microscopic hematuria. Patient reports worsening urinary habits including: weak stream, urinary urgency, urinary frequency, intermittency, and nocturia. The patient has never been a smoker.They deny any worrisome occupational exposures that would increase their risk for urothelial cell carcinoma. Also reports moderate ED. He denies any history of urologic malignancies.No history of nephrolithiasis.No history of prior pelvic radiation. 12/23/2023:Here for follow up microscopic hematuria, BPH with LUTS, ED, and new diagnosis of small bilateral non-obstructing kidney stones. CT Urogram reviewed with no other adverse findings. Due for cystoscopy today with diazepam on board. Significant improvement in urination with tamsulosin.Thony Crystal MD [address], [place], [address], [facility] Hfilyyr5812/23/2023 22:16:51
--- NOTE | 2025-04-19 14:24 | CRLHL7_ITS ---
For Patients: As a result of the Century Cures Act, medical imaging exams and procedure reports are released immediately into your electronic medical record. You may view this report before your referring provider. If you have questions, please contact your health care provider. INDICATION: Fall. Hit anterior neck. TECHNIQUE: CT of the head without contrast. Coronal and sagittal reformats are included. COMPARISON: CT of the head from 10/02/2012. FINDINGS: No acute intracranial hemorrhage. No mass effect or midline shift. No hydrocephalus or extra-axial collections. White matter is within normal limits for age. No acute osseous abnormalities. Mastoid air cells and paranasal sinuses are clear. Normal soft tissues. IMPRESSION: IMPRESSION: 1. No acute intracranial abnormalities. Please note that all CT scans at this facility use dose modulation, iterative reconstruction, and/or weight-based dosing when appropriate to reduce radiation dose to as low as reasonably achievable. Dictated by Chris Barlow MD @ 04/19/2025 2:55:38 PM (Electronically Signed)
--- NOTE | 2025-04-19 14:24 | CRLHL7_ITS ---
For Patients: As a result of the Cures Act, medical imaging exams and procedure reports are released immediately into your electronic medical record. You may view this report before your referring provider. If you have questions, please contact your health care provider. INDICATION: Fall, trauma. TECHNIQUE: CT cervical spine without contrast. COMPARISON: None. FINDINGS: No acute fracture. No listhesis. Bony mineralization is age appropriate. No prevertebral soft tissue hematoma or swelling. No soft tissue abnormality is identified. Multilevel spinal stenosis. No pathologically enlarged lymph nodes. Thyroid is normal. Lung apices are clear. IMPRESSION: No acute fracture. Please note that all CT scans at this facility use dose modulation, iterative reconstruction, and/or weight-based dosing when appropriate to reduce radiation dose to as low as reasonably achievable. Dictated by Tunde Deras MD @ 04/19/2025 2:57:48 PM (Electronically Signed)
--- NOTE | 2025-04-19 14:26 | ED.GENADULT ---
HPI - General Adult General Chief complaint: Laceration/Wound Stated complaint: LAC Time Seen by Provider: 04/19/25 14:21 History of Present Illness HPI narrative: Patient is a 60-year-old gentleman who was working on his trailer hitch today when he slipped on the ice falling forward. He struck his neck on the H itself is not believe he hit his head. Patient was helped up by his . Patient does not believe he has had change in his consciousness. He has some tingling down his left arm as well as 2 small puncture area is just to the left of the midline on the anterior neck. Patient has no neurologic complaints. No fevers no chills. Patient is in his usual state of health. Patient brought in to the ER C-collar is in place Related Data Previous Rx's ?Medication ?Instructions ?Recorded amlodipine 5 mg tablet 5 mg PO QDAY #90 tabs 03/29/24 valsartan 160 mg tablet 160 mg PO QDAY #90 tabs 03/29/24 rosuvastatin 10 mg tablet 10 mg PO DAILY for cholesterol #30 01/26/25 tabs amlodipine 5 mg-valsartan 160 mg 1 tab PO QDAY #14 tabs 03/19/25 tablet Allergies Allergy/AdvReac Type Severity Reaction Status Date / Time No Known Drug Allergies Allergy Verified 04/19/25 14:17 Review of Systems Status of ROS: Reports: 10 or more systems reviewed and unremarkable except as noted in History and below [facility] Medical History Pain of right thumb ?M79.644 - Pain in right finger(s) (ICD-10) Rotator cuff tear, right ?M75.101 - Unspecified rotator cuff tear or rupture of right shoulder, not specified as traumatic (ICD-10) Hypertension ?I10 - Essential (primary) hypertension (ICD-10) Subacromial impingement of right shoulder ?M75.41 - Impingement syndrome of right shoulder (ICD-10) Arthritis of right acromioclavicular joint ?M19.011 - Primary osteoarthritis, right shoulder (ICD-10) Benign prostatic hyperplasia ?N40.0 - Benign prostatic hyperplasia without lower urinary tract symptoms (ICD-10) Surgical History Hx of repair of right rotator cuff (~07/2023) ?Z98.890 - Other specified postprocedural states (ICD-10) History of surgery on arm ?Z98.890 - Other specified postprocedural states (ICD-10) History of tonsillectomy ?Z90.89 - Acquired absence of other organs (ICD-10) History of bilateral inguinal hernia repair (01/10/18) ?Z98.890 - Other specified postprocedural states (ICD-10) ?Z87.19 - Personal history of other diseases of the digestive system (ICD-10) Family History (Updated 07/21/23 @ 16:19 by Linda Morgan PA-C) Father Stroke High blood pressure Brother High blood pressure Hx of CABG Mother Diabetes High blood pressure Cardiac arrhythmia Sister High blood pressure Brother Heart problem Son Sleep apnea Social History Narrative: 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 Alcohol: 2-3 beers a couple times per month. Denies recreational drug use . 3 sons ( 22yo, 24yo, 26 yo) Smoking Status: Never smoker Do you use any of these nicotine containing products: None Second hand tobacco smoke exposure: No How often do you have a drink containing alcohol: never AUDIT-C Alcohol total score: 0 Non-prescribed substance use: denies use Exam Narrative: Exam Narrative: EXAM GENERAL: Patient appears comfortable and well. EYES: No scleral icterus. LYMPH: No supraclavicular or cervical lymphadenopathy. SKIN: Small skin tears verses lacerations anterior neck just to the left of the midline. Largest of which is 1 cm in length EXT: No dependent lower extremity pedal edema. HEART: Regular rate and rhythm with no murmurs, rubs, or gallops. LUNGS: Clear to auscultation bilaterally with no crackles or wheezes. ABD: Soft, non tender, non distended. PSYCH: Good eye contact, speech is not pressured. Neurologic cranial nerves 2-12 grossly intact no focal defects. Const: Vital Signs, click to edit/add: Vital Signs - 24 hr 04/19/25 14:13 Temperature 97.8 F Pulse Rate [Right] 90 Respiratory Rate 18 Blood Pressure [Le ft Upper Arm] 166/47 H Pulse Oximetry 96 Oxygen Delivery Me thod Room Air Course Course ED Course: Patient seen and examined. He is stable at this time we did send him for CT of the head and neck. Vital Signs Vital signs: Initial Vital Signs Temperature 97.8 F 04/19/25 14:13 Temperature Source Temporal Artery Scan 04/19/25 14:13 Pulse Rate 90 04/19/25 14:13 Pulse Rhythm Regular 04/19/25 14:13 Pulse Strength 3+ Normal 04/19/25 14:13 Respiratory Rate 18 04/19/25 14:13 Blood Pressure 166/47 H 04/19/25 14:13 Blood Pressure Mean 86 04/19/25 14:13 Pulse Oximetry 96 04/19/25 14:13 Oxygen Delivery Method Room Air 04/19/25 14:13 Vital Signs Temperature 97.8 F 04/19/25 14:13 Pulse Rate 90 04/19/25 14:13 Respiratory Rate 18 04/19/25 14:13 Blood Pressure 166/47 H 04/19/25 14:13 Pulse Oximetry 96 04/19/25 14:13 Oxygen Delivery Method Room Air 04/19/25 14:13 Temperature 97.8 F 04/19/25 14:13 Pulse Rate 90 04/19/25 14:13 Respiratory Rate 18 04/19/25 14:13 Blood Pressure 166/47 H 04/19/25 14:13 Pulse Oximetry 96 04/19/25 14:13 Oxygen Delivery Method Room Air 04/19/25 14:13 Medical Decision Making MDM Narrative Medical decision making narrative: Patient presents after a blunt injury to the anterior aspect of his neck. He has 2 very small skin tears which are dressed which are cleaned and dressed. I did image his head and cervical spine both for normal. Patient does have some tingling in his hands but has a normal neurologic repeat exam. I did call and discuss findings with Neurology who personally reviewed the imaging and clinical course. At this time patient is offered reassurance he can take care of the skin tears with daily dressing changes and follow-up with his primary physician as needed. Discharge Plan Discharge Clinical Impression: Injury of neck Patient Disposition: Home, Self-Care Condition: Stable Additional Instructions: Daily dressing changes with triple antibiotic Tylenol 1000 mg 3 times a day as needed Ibuprofen 800 mg 3 times a day as needed Follow-up with your doctor next week. Activity Level: No Restrictions Discharge Diet: Regular Prescriptions: No Action valsartan 160 mg tablet 160 mg PO QDAY Qty: 90 1RF Rx Instructions: once daily for blood pressure amlodipine 5 mg tablet 5 mg PO QDAY Qty: 90 1RF Rx Instructions: once daily for blood pressure rosuvastatin 10 mg tablet 10 mg PO DAILY Qty: 30 0RF Rx Instructions: once daily for cholesterol amlodipine-valsartan 5-160 mg tablet 1 tab PO QDAY Qty: 14 0RF Rx Instructions: one tablet one time daily for blood pressure Follow Up/Referrals: Linda Morgan PA-C [Primary Care Provider, Family Practice] Stand Alone Forms: [email or web address] Info Instructions
== END 2025-04-19 15:46 | disposition home or self-care (01) ==
PROVIDERS: Emergency Provider Internal Medicine; PCP Physician Assistant Medical
DX: S19.9XXA Unspecified injury of neck, initial encounter (principal); W01.198A Fall on same level from slipping, tripping and stumbling with subsequent striking against other object, initial encounter
CPT/HCPCS: 70450; 72125; 99283; 99284